=== PATIENT | male | born 1965 | race Caucasian/White ===

== ENCOUNTER 2017-08-24 22:44 | Emergency (ER) | payer SELFPAY ==
[~2017-08-24] VITALS: Ht 180.3 cm; Wt 77.9 kg
[~2017-08-24 22:44] MED LIST: ATENOLOL25 M1 PO; Colace PO; Feosol PO; KLONOPIN1 M1 PO; LEUCOVORIN CALCIUM PO; Vicodin,Norco 5/325 PO
[2017-08-24 22:47] VITALS: BP 163/111
== END 2017-08-24 23:06 | disposition left against medical advice (07) ==
LOC: EME 22:44
DX: S50.12XA Contusion of left forearm, initial encounter (principal); Z53.21 Procedure and treatment not carried out due to patient leaving prior to being seen by health care provider
CPT/HCPCS: 73090

== ENCOUNTER 2018-04-04 23:38 | Observation (INO) | payer OTHER ==
[~2018-04-04] VITALS: Ht 180.3 cm; Wt 74.0 kg
[2018-04-05] VITALS (7 sets, daily range): BP systolic 124–192; BP diastolic 70–98
[2018-04-05 00:09] LABS: BASOPHIL (%) 1.1 % (0-1); BASOPHIL COUNT 0.2 K/uL (0-0.1); EOSINOPHIL (%) 4.4 % (0-5); EOSINOPHIL COUNT 0.6 K/uL (0-0.3); HEMATOCRIT 46.7 % (38.0-50.0); HEMOGLOBIN 16.4 G/DL (12.5-16.6); IMMATURE GRANULOCYTE (%) 0.4 % (0.0-0.7); LYMPHOCYTE COUNT 3.5 K/uL (1.0-2.8); MCHC 35.1 G/DL (30.0-36.0); MONOCYTE (%) 4.1 % (3-12); MONOCYTE COUNT 0.6 K/uL (0-0.8); NEUTROPHIL COUNT 8.6 K/uL (1.8-6.4); PLATELET COUNT 160 K/uL (156-360); RBC DIS.WIDTH-CV 12.3 % (11.8-14.6); RBC DIS.WIDTH-SD 42.8 % (39-53); RED BLOOD COUNT 4.97 M/uL (4.00-5.50); WHITE BLOOD COUNT 13.5 K/uL (4.1-10.2)
[2018-04-05 00:17] LABS: AMYLASE 64 IU/L (1-118); CHLORIDE 107 mEq/L (99-109); POTASSIUM 3.8 mEq/L (3.7-5.4); SODIUM 142 mEq/L (136-147)
[2018-04-05 00:19] LABS: GLUCOSE 107 mg/dL (70-99)
[2018-04-05 00:22] LABS: SERUM ETHYL ALCOHOL 328 mg/dL
[2018-04-05 00:23] LABS: CREATININE 0.7 mg/dL (0.6-1.3); GFR ESTIMATE (CALCULATED) > 59 mL/min/ (58.99-99999)
[2018-04-05 00:24] LABS: UREA NITROGEN (BUN) 7 mg/dL (9-23)
[2018-04-05 00:26] LABS: LIPASE 18 U/L (1.0-51.0)
[2018-04-05 01:20] LABS: APPEARANCE CLEAR ((CLEAR)); BILIRUBIN NEGATIVE; BLOOD NEGATIVE; COLOR STRAW ((YELLOW)); GLUCOSE (STRIP) NEGATIVE; KETONES NEGATIVE; LEUKOCYTES NEGATIVE; NITRITE NEGATIVE; PROTEIN (STRIP) NEGATIVE; SPECIFIC GRAVITY 1.008 (1.000-1.030); UCUL ADDED? NO; UROBILINOGEN 0.2 MG/DL (0.2-1.0)
[2018-04-05 01:30] LABS: AMPHETAMINE NEGATIVE (500 ng/mL); BARBITURATES NEGATIVE (200 ng/mL); BENZODIAZEPINES NEGATIVE (150 ng/mL); BUPRENORPHINE NEGATIVE (10 ng/mL); COCAINE NEGATIVE (150 ng/mL); METHADONE NEGATIVE (200 ng/mL); METHAMPHETAMINE NEGATIVE (500 ng/mL); OPIATES (MORPHINE) NEGATIVE (100 ng/mL); OXYCODONE NEGATIVE (100 ng/mL); PHENCYCLIDINE NEGATIVE (25 ng/mL); PROPOXYPHENE NEGATIVE (300 ng/mL); THC CANNABINOIDS PRESUMPTIVE POSITIVE (50 ng/mL); TRICYCLIC ANTIDEPRESSANTS NEGATIVE (300 ng/mL)
[2018-04-05] MEDS ORDERED: CLONAZEPAM1 MG PO (14:58)
[2018-04-05] MEDS ORDERED: CYCLOBENZAPRINE5 MG PO (14:59)
[2018-04-05] MEDS ORDERED: GABAPENTIN400 MG PO (14:59)
[2018-04-05] MEDS ORDERED: ROSUVASTATIN CA20 MG PO (14:59)
[2018-04-05] MEDS ORDERED: FAMOTIDINE20 MG PO (15:01)
[2018-04-05] MEDS ORDERED: SPIRONOLACTONE25 MG PO (15:01)
[2018-04-05] MEDS ORDERED: METOPROLOL SUC100 MG PO (15:01)
[2018-04-05] MEDS ORDERED: ACETAMINOPHEN-1 EAC1 PO (15:03)
[2018-04-06 04:04] VITALS: BP 138/94
[2018-04-06 08:10] VITALS: BP 132/86
[2018-04-06 08:55] LABS: BASOPHIL (%) 0.9 % (0-1); BASOPHIL COUNT 0.1 K/uL (0-0.1); EOSINOPHIL (%) 3.3 % (0-5); EOSINOPHIL COUNT 0.2 K/uL (0-0.3); HEMATOCRIT 39.6 % (38.0-50.0); IMMATURE GRANULOCYTE (%) 0.2 % (0.0-0.7); LYMPHOCYTE (%) 28.5 % (15-42); LYMPHOCYTE COUNT 1.6 K/uL (1.0-2.8); MCH 32.3 PG (29.0-34.0); MCHC 34.3 G/DL (30.0-36.0); MCV 94.1 FL (86-99); MONOCYTE (%) 8.7 % (3-12); MONOCYTE COUNT 0.5 K/uL (0-0.8); NEUTROPHIL (%) 58.4 % (45-76); NEUTROPHIL COUNT 3.4 K/uL (1.8-6.4); RBC DIS.WIDTH-CV 11.9 % (11.8-14.6); RBC DIS.WIDTH-SD 40.7 % (39-53); RED BLOOD COUNT 4.21 M/uL (4.00-5.50); WHITE BLOOD COUNT 5.8 K/uL (4.1-10.2)
[2018-04-06 08:56] LABS: HEMOGLOBIN 13.6 G/DL (12.5-16.6)
[2018-04-06 09:12] LABS: CHLORIDE 104 MEQ/L (99-109); CREATININE 0.6 MG/DL (0.6-1.3); GFR ESTIMATE (CALCULATED) > 59 mL/min/ (58.99-99999); GLUCOSE 92 mg/dL (70-99); POTASSIUM 3.4 MEQ/L (3.7-5.4); SODIUM 139 MEQ/L (136-147); UREA NITROGEN (BUN) 6 mg/dL (9-23)
[2018-04-06 09:17] LABS: PLAT.SUFFICIENCY DECREASED
[2018-04-06 09:24] LABS: PLATELET COUNT 95 K/uL (156-360)
[2018-04-06] MEDS ORDERED: PERCOCET 5/31 TABLET PO (12:43)
== END 2018-04-06 15:25 | disposition home or self-care (01) ==
LOC: EME → EDBD 23:38 → EME 23:38 → TRA 23:38 → EDOF 04-05 04:23 → 3EAST 04-05 04:23 → ENRESERV 04-05 04:24 → 3EAST 04-05 05:07
PROVIDERS: Emergency Medicine; Physician Assistant
DX: S02.40CA Maxillary fracture, right side, initial encounter for closed fracture (principal); S02.81XA Fracture of other specified skull and facial bones, right side, initial encounter for closed fracture; S02.2XXA Fracture of nasal bones, initial encounter for closed fracture; S01.81XA Laceration without foreign body of other part of head, initial encounter; F10.129 Alcohol abuse with intoxication, unspecified; Y90.8 Blood alcohol level of 240 mg/100 ml or more; I10 Essential (primary) hypertension; G25.81 Restless legs syndrome; G40.909 Epilepsy, unspecified, not intractable, without status epilepticus; F17.200 Nicotine dependence, unspecified, uncomplicated; F32.9 Major depressive disorder, single episode, unspecified; Y08.89XA Assault by other specified means, initial encounter
CPT/HCPCS: 70450; 70486; 72125; 80048; 81003; 82150; 83690; 84999; 85025; 86850; 86900; 86901; 94799; G0378; G0480; J2270; J2405; J3010; J3411; J7030; J7120